=== PATIENT | male | born 1950 | race Caucasian/White ===

== ENCOUNTER → 2022-05-17 | Outpatient (CLI) | payer BC, SELFPAY | END | disposition home or self-care (01) | PROVIDERS: PCP Internal Medicine; Visit Provider Otolaryngology | DX: J01.90 Acute sinusitis, unspecified (principal) | CPT/HCPCS: 87070; 87077; 87205 ==

== ENCOUNTER → 2023-05-22 | Outpatient (CLI) | payer BC, SELFPAY | END | disposition home or self-care (01) | PROVIDERS: PCP Internal Medicine; Visit Provider Otolaryngology Otolaryngology/Facial Plastic Surgery | DX: J32.8 Other chronic sinusitis (principal) | CPT/HCPCS: 87070; 87205 ==